=== PATIENT | female | born 1980 | race Caucasian/White ===

== ENCOUNTER 2016-10-22 08:40 | Emergency (ER) | payer BC, MEDICAID ==
[~2016-10-22] VITALS: Ht 167.6 cm; Wt 69.6 kg
[~2016-10-22 08:40] MED LIST: ALBU0.086 NEB; CETI10 PO; GABA300C3 PO; LAMO100 PO; SYMB80AE INH
[2016-10-22 08:47] VITALS: BP 116/88; PULSE 92; RESP 18; TEMP 98.1; O2SAT 99
[2016-10-22] MEDS ORDERED: VENTAER INH (08:58)
[2016-10-22] MEDS ORDERED: GABA300C5 PO (08:58)
[2016-10-22] MEDS ORDERED: LAMI200T PO (08:58)
[2016-10-22] MEDS ORDERED: VORT1TAB PO (08:58)
[2016-10-22] MEDS ORDERED: INHALER (08:58)
[2016-10-22] MEDS ORDERED: LURA20TA PO (08:58)
--- NOTE | 2016-10-22 09:00 | PD ---
HPI Chief Complaint: Musculoskeletal Complaint Time Seen by Provider: 08:58 Travel History International Travel<30 days: No Contact w/Intl Traveler<30days: No Traveled to known affect area: No History of Present Illness HPI This 36-year-old female is complaining of pain in the right hand. She fell and hit her hand on Sunday. She didn't have pain since then. No other injuries PFSH Past Medical History Asthma: Yes Anxiety: Yes Depression: Yes Cancer: No Cardiovascular Problems: No Chemotherapy: No Diabetes: No Diminished Hearing: No Endocrine: No Glaucoma: No Genitourinary: No Headaches: Yes Hepatitis: No Hiatal Hernia: No Hypertension: No Immune Disorder: No Implanted Vascular Access Dvce: Yes Musculoskeletal: Yes (neck is fused ruptured disc in the back) Neurologic: Yes (seizure disorder frequent headaches) Psychiatric: Yes (anxiety and depression) Reproductive: Yes Respiratory: Yes (asthma) Radiation Therapy: No Seizures: Yes Thyroid Disease: No ?: Not : 3 Para: 2 Past Surgical History AICD: No Body Medical Devices: breast implants hardware both feet hardware in the neck Section: Yes Gynecologic Surgery: Yes (c -sectiioin left oophorectomy hysterectomy) Hysterectomy: Yes Joint Replacement: No Pacemaker: No Thoracic Surgery: Yes (benign left breast lumpectomy char breast implants) Other Surgery: Yes (lumpectomy melenoma) Social History Alcohol Use: Yes (rare) Tobacco Use: Yes (E-CIG) Substance Use: No Allergies-Medications (Allergen,Severity, Reaction): Coded Allergies: No Known Allergies (Verified , 10/22/16) Reported Meds & Prescriptions Reported Meds & Active Scripts Active Reported [Inhaler] Unknown Dose Ventolin Hfa 18 GM Inh (Albuterol Sulfate) 90 Mcg/Act Aer 1 Puff INH Q4H PRN Gabapentin 300 Mg Cap Unknown Dose PO BID Latuda (Lurasidone) 20 Mg Tab Unknown Dose PO DAILY Trintellix (Vortioxetine) 5 Mg Tab Unknown Dose PO DAILY Lamictal (Lamotrigine) 200 Mg Tab 250 Mg PO BID Review of Systems General / Constitutional: No: Fever, Chills Eyes: No: Diploplia HENT: No: Headaches Cardiovascular: No: Chest Pain or Discomfort, Palpitations Respiratory: No: Cough, Shortness of Breath Gastrointestinal: No: Diarrhea Musculoskeletal: Positive: Pain Skin: No Rash, No Itching Physical Exam Narrative GENERAL: Well-developed female SKIN: Warm and dry. HEAD: Atraumatic. Normocephalic. EYES: Pupils equal and round. No scleral icterus. No injection or drainage. ENT: No nasal bleeding or discharge. Mucous membranes pink and moist. NECK: Trachea midline. No JVD. MUSCULOSKELETAL: No obvious deformities. No clubbing. No cyanosis. No edema. There is ecchymosis on the ulnar side of the right hand. There is tenderness over the fifth metacarpal. There is pain with movement of the fifth finger. NEUROLOGICAL: Awake and alert. No obvious cranial nerve deficits. Motor grossly within normal limits. Normal speech. PSYCHIATRIC: Appropriate mood and affect; insight and judgment normal. Data Data Last Documented VS Vital Signs Date Time Temp Pulse Resp B/P Pulse Ox O2 Delivery O2 Flow Rate FiO2 10/22/16 08:47 98.1 92 18 116/88 99 Room Air Orders Hand, Complete ([id number]) (10/22/16 08:58) Splint Or Brace Apply/Monitor (10/22/16 09:30) [facility] Medical Decision Making Medical Screen Exam Complete: Yes Emergency Medical Condition: Yes Medical Record Reviewed: Yes Differential Diagnosis Differential includes contusion, fracture Narrative Course X-ray shows irregularity at the base of the proximal phalanx of the fifth finger consistent with a nondisplaced fracture. On reevaluating the patient she is exquisitely tender at this place. I will place her in a ulnar gutter splint. Diagnosis Primary Impression: Fracture of proximal phalanx of finger Qualified Code: S62.646A - Closed nondisplaced fracture of proximal phalanx of right little finger, initial encounter Additional Instructions: elevate, follow up 1-2 weeks Disposition: 01 DISCHARGE HOME Condition: Stable Gerald Lynn MD Oct 22, 2016 09:00
--- NOTE | 2016-10-22 09:19 | RADHPO ---
EXAM DATE/TIME: 10/22/2016 09:03 CORRECTION Corrected on: October 22, 2016; [facility] COMPARISON: No previous studies available for comparison. INDICATIONS : Fell on right hand, has pain MEDICAL HISTORY : None. SURGICAL HISTORY : None. ENCOUNTER: Initial ACUITY: 3 days PAIN SCORE: 10/10 LOCATION: Right hand FINDINGS: There is a minimally displaced fracture at the base of the little finger proximal phalanx. The fractu re is transverse to oblique in configuration. I don't see clear extension to the articular surface. T here is no subluxation. CONCLUSION: Acute minimally displaced fracture of the base of the little finger proximal phalanx. Philip Espinosa MD on October 22, 2016 at 9:17 Board Certified Radiologist. This report was verified electronically. Philip Espinosa MD on October 22, 2016 at 9:36 Board Certified Radiologist. This report was verified electronically.
== END 2016-10-22 09:57 | disposition home or self-care (01) ==
LOC: PHED 08:40
DX: S62.646A Nondisplaced fracture of proximal phalanx of right little finger, initial encounter for closed fracture (principal); W19.XXXA Unspecified fall, initial encounter
CPT/HCPCS: 29125; 73130

== ENCOUNTER 2016-12-21 10:04 | Emergency (ER) | payer BC, MEDICAID ==
[~2016-12-21 10:04] MED LIST changes: -ALBU0.086 NEB; -CETI10 PO; -GABA300C3 PO; +GABA300C5 PO; +INHALER; +LAMI200T PO; -LAMO100 PO; +LURA20TA PO; -SYMB80AE INH; +VENTAER INH; +VORT1TAB PO
[2016-12-21 10:05] VITALS: BP 120/80; PULSE 92; RESP 20; TEMP 97.5; O2SAT 100
[2016-12-21] MEDS ORDERED: SODIUM CHLOR 0.9% 1000 ML INJ 1,000 ML IV SCH (10:26)
[2016-12-21] MEDS ORDERED: MORPHINE SULFATE 4 MG/ML INJ IV PUSH ONE (10:30)
[2016-12-21] MEDS ORDERED: SODIUM CHLORIDE 0.9% FLUSH 10 ML FLUSH IV FLUSH PRN (10:30)
[2016-12-21] MEDS ORDERED: ONDANSETRON HCL 4 MG/2 ML VIAL IVP ONE (10:30)
--- NOTE | 2016-12-21 10:31 | PD ---
HPI Chief Complaint: Complaint Time Seen by Provider: 10:22 Travel History International Travel<30 days: No Contact w/Intl Traveler<30days: No Traveled to known affect area: No History of Present Illness HPI 36-year-old female sent in by an urgent care facility for evaluation of possible kidney stone. The patient began having left flank pain yesterday which she describes as cramping/sharp/labor like pains. Pain radiates around to her abdomen, is constant, sometimes worse with movements. She denies fevers or chills. No nausea or vomiting. No hematuria or dysuria. She presents with paperwork from the urgent care facility that shows that her UA shows 3+ blood. PFSH Past Medical History Asthma: Yes Anxiety: Yes Depression: Yes Cancer: No Cardiovascular Problems: No Chemotherapy: No Diabetes: No Diminished Hearing: No Endocrine: No Glaucoma: No Genitourinary: No Headaches: Yes Hepatitis: No Hiatal Hernia: No Hypertension: No Immune Disorder: No Implanted Vascular Access Dvce: Yes Musculoskeletal: Yes (neck is fused ruptured disc in the back) Neurologic: Yes (seizure disorder frequent headaches) Psychiatric: Yes (anxiety and depression) Reproductive: Yes Respiratory: Yes (asthma) Radiation Therapy: No Seizures: Yes Thyroid Disease: No Tetanus Vaccination: < 5 Years ?: Not : 3 Para: 2 Past Surgical History AICD: No Body Medical Devices: breast implants hardware both feet hardware in the neck Section: Yes Gynecologic Surgery: Yes (c -sectiioin left oophorectomy hysterectomy) Hysterectomy: Yes Joint Replacement: No Pacemaker: No Thoracic Surgery: Yes (benign left breast lumpectomy char breast implants) Other Surgery: Yes (lumpectomy melenoma) Social History Alcohol Use: Yes (rare) Tobacco Use: Yes (E-CIG) Substance Use: No Allergies-Medications (Allergen,Severity, Reaction): Coded Allergies: No Known Allergies (Verified , 12/21/16) Reported Meds & Prescriptions Reported Meds & Active Scripts Active Reported [Inhaler] Unknown Dose Ventolin Hfa 18 GM Inh (Albuterol Sulfate) 90 Mcg/Act Aer 1 Puff INH Q4H PRN Gabapentin 300 Mg Cap Unknown Dose PO BID Latuda (Lurasidone) 20 Mg Tab Unknown Dose PO DAILY Trintellix (Vortioxetine) 5 Mg Tab Unknown Dose PO DAILY Lamictal (Lamotrigine) 200 Mg Tab 250 Mg PO BID Review of Systems Except as stated in HPI: all other systems reviewed are Neg Physical Exam Narrative GENERAL: Well-developed, well-nourished, no acute distress. SKIN: Focused skin assessment warm/dry. No rash. HEAD: Atraumatic. Normocephalic. EYES: Pupils equal and round. No scleral icterus. No injection or drainage. ENT: Mucous membranes pink and moist. CARDIOVASCULAR: Regular rate and rhythm. RESPIRATORY: No accessory muscle use. Clear to auscultation. Breath sounds equal bilaterally. GASTROINTESTINAL: Abdomen soft, nondistended. Mild left lower quadrant tenderness without peritoneal signs. MUSCULOSKELETAL: No obvious deformities. No clubbing. No cyanosis. No edema. NEUROLOGICAL: Awake and alert. No obvious cranial nerve deficits. Motor grossly within normal limits. Normal speech. PSYCHIATRIC: Appropriate mood and affect; insight and judgment normal. Data Data Last Documented VS Vital Signs Date Time Temp Pulse Resp B/P Pulse Ox O2 Delivery O2 Flow Rate FiO2 12/21/16 10:36 99 12/21/16 10:05 97.5 92 20 120/80 Room Air Orders Complete Blood Count With Diff (12/21/16 10:26) Comprehensive Metabolic Panel (12/21/16 10:26) Lipase (12/21/16 10:26) Prothrombin Time / Inr (Pt) (12/21/16 10:26) Act Partial Throm Time (Ptt) (12/21/16 10:26) Urinalysis - C+S If Indicated (12/21/16 10:26) Ct Abd/Pel W/O Iv Contrast (12/21/16 10:26) Iv Access Insert/Monitor (12/21/16 10:26) Ecg Monitoring (12/21/16 10:26) Oximetry (12/21/16 10:26) Morphine Inj (Morphine Inj) (12/21/16 10:30) Ondansetron Inj (Zofran Inj) (12/21/16 10:30) Sodium Chlor 0.9% 1000 Ml Inj (Ns 1000 M (12/21/16 10:26) Sodium Chloride 0.9% Flush (Ns Flush) (12/21/16 10:30) Ed Urine Pregnancytest Poc (12/21/16 10:26) Urine Culture (12/21/16 10:30) Ketorolac Inj (Toradol Inj) (12/21/16 11:45) Ceftriaxone Inj (Rocephin Inj) (12/21/16 11:45) Labs Laboratory Tests Test 12/21/16 10:30 White Blood Count 13.3 TH/MM3 Red Blood Count 4.16 MIL/MM3 Hemoglobin 12.7 GM/DL Hematocrit 37.7 % Mean Corpuscular Volume 90.6 FL Mean Corpuscular Hemoglobin 30.5 PG Mean Corpuscular Hemoglobin 33.7 % Concent Red Cell Distribution Width 12.1 % Platelet Count 250 TH/MM3 Mean Platelet Volume 7.8 FL Neutrophils (%) (Auto) 79.7 % Lymphocytes (%) (Auto) 15.1 % Monocytes (%) (Auto) 3.9 % Eosinophils (%) (Auto) 1.1 % Basophils (%) (Auto) 0.2 % Neutrophils # (Auto) 10.6 TH/MM3 Lymphocytes # (Auto) 2.0 TH/MM3 Monocytes # (Auto) 0.5 TH/MM3 Eosinophils # (Auto) 0.1 TH/MM3 Basophils # (Auto) 0.0 TH/MM3 CBC Comment DIFF FINAL Differential Comment Prothrombin Time 11.0 SEC Prothromb Time International 1.0 RATIO Ratio Activated Partial 29.6 SEC Thromboplast Time Urine Color COLORLESS Urine Turbidity CLEAR Urine pH 6.5 Urine Specific [place] 1.002 Urine Protein TRACE mg/dL Urine Glucose (UA) NEG mg/dL Urine Ketones NEG mg/dL Urine Occult Blood MOD Urine Nitrite NEG Urine Bilirubin NEG Urine Urobilinogen LESS THAN 2.0 MG/DL Urine Leukocyte Esterase LARGE Urine RBC 1 /hpf Urine WBC 17 /hpf Urine Squamous Epithelial 1 /hpf Cells Urine Bacteria OCC /hpf Urine Mucus FEW /lpf Microscopic Urinalysis Comment CULTURE INDICATED Sodium Level 138 MEQ/L Potassium Level 3.8 MEQ/L Chloride Level 105 MEQ/L Carbon Dioxide Level 26.2 MEQ/L Anion Gap 7 MEQ/L Blood Urea Nitrogen 11 MG/DL Creatinine 0.93 MG/DL Estimat Glomerular Filtration 68 ML/MIN Rate Random Glucose 81 MG/DL Calcium Level 9.1 MG/DL Total Bilirubin 0.5 MG/DL Aspartate Amino Transf 18 U/L (AST/SGOT) Alanine Aminotransferase 30 U/L (ALT/SGPT) Alkaline Phosphatase 56 U/L Total Protein 7.8 GM/DL Albumin 4.1 GM/DL Lipase 78 U/L [facility] Medical Decision Making Medical Screen Exam Complete: Yes Emergency Medical Condition: Yes Differential Diagnosis Nephrolithiasis, ureterolithiasis, pyelonephritis, colitis, diverticulitis, gastritis, shingles, musculoskeletal pain Narrative Course Vital signs show heart rate 92, blood pressure 120/80, pulse ox 100% on room air , oral temp of 97.5F. CBC shows WBC 13.3, hemoglobin 12.7, hematocrit 37.7, platelets 250, neutrophils 79.7%. CMP is unremarkable. Lipase is 78. UA shows moderate occult blood, large leukocyte esterase, 17 WBCs, occasional bacteria, few mucus, negative nitrites, culture indicated. CT abdomen pelvis: CONCLUSION: 1. The kidneys are unremarkable in appearance with no renal calculi or extraction. 2. The bowel gas pattern is unremarkable in appearance on this noncontrast study performed without oral contrast. Patient was given morphine, Toradol, and Rocephin. On reassessment she is resting comfortably. She is stable for discharge home with outpatient follow- up with her primary care physician this week. She will be discharged home with a prescription for Macrobid for pyelonephritis. I informed her to look for possible rash/shingles and to return to the emergency department immediately should she notices. She was informed on when to return to the emergency department. She verbalizes understanding and agreement with plan. Diagnosis Primary Impression: Pyelonephritis Additional Impression: Left flank pain Referrals: Primary Care Physician 3 days Additional Instructions: Follow-up with your primary care physician this week. Return to the emergency department for worsening symptoms or any other concerns. Scripts Tramadol 50 Mg Tab50 Mg PO Q6H PRN (PAIN) #10 TAB Ref 0 Prov:Denis Brown MD 12/21/16 Nitrofurantoin Monohydrate Macrocrystals (Macrobid)100 Mg Mcz161 Mg PO BID 7 Days Ref 0 Prov:Denis Brown MD 12/21/16 Disposition: 01 DISCHARGE HOME Condition: Stable Denis Brown MD Dec 21, 2016 10:31
[2016-12-21 10:36] VITALS: O2SAT 99
[2016-12-21 10:51] LABS: AUTOMATED NEUTROPHIL # 10.6 TH/MM3 (1.8-7.7); BASOPHIL % 0.2 % (0.0-2.0); EOSINOPHIL # 0.1 TH/MM3 (0-0.4); EOSINOPHIL % 1.1 % (0.0-4.0); HEMATOCRIT 37.7 % (35.0-46.0); HEMO FLAGS DIFF FINAL; LYMPH % 15.1 % (9.0-44.0); MEAN CELL VOLUME 90.6 FL (80.0-100.0); MEAN CORPUSCULAR HEMOGLOBIN 30.5 PG (27.0-34.0); MEAN CORPUSCULAR HGB CONC 33.7 % (32.0-36.0); MONO % 3.9 % (0.0-8.0); NEUT % 79.7 % (16.0-70.0); PLATELET COUNT 250 TH/MM3 (150-450); RED BLOOD COUNT 4.16 MIL/MM3 (4.00-5.30); RED CELL DISTRIBUTION WIDTH 12.1 % (11.6-17.2); WHITE BLOOD COUNT 13.3 TH/MM3 (4.0-11.0)
[2016-12-21 10:57] LABS: BACTERIA, URINE OCC /hpf; BLOOD, URINE MOD (NEG); COMMENT (UR) CULTURE INDICATED; CULTURE IF INDICATED CULTURE INDICATED; GLUCOSE,URINE NEG (NEG); KETONE, URINE NEG (NEG); MUCUS URINE FEW /lpf (OCC); NITRITE,URINE NEG (NEG); PH, URINE 6.5 (5.0-8.5); SQUAMOUS EPITHELIAL CELL URINE 1 /hpf (0-5); URINE COLOR COLORLESS (YELLW/STRAW)
[2016-12-21 11:01] LABS: APTT (PATIENT) 29.6 SEC (24.3-30.1)
[2016-12-21 11:14] LABS: ALT (GPT) 30 U/L (10-53); ANION GAP 7 MEQ/L (5-15); AST (GOT) 18 U/L (15-37); BICARBONATE 26.2 MEQ/L (21.0-32.0); BLOOD UREA NITROGEN 11 MG/DL (7-18); CHLORIDE 105 MEQ/L (98-107); GLOMERULAR FILTRATION RATE 68 ML/MIN (>89); POTASSIUM 3.8 MEQ/L (3.5-5.1); SODIUM (NA) 138 MEQ/L (136-145)
[2016-12-21 11:16] LABS: ALKALINE PHOSPHATASE 56 U/L (45-117); TOTAL BILIRUBIN ADULT 0.5 MG/DL (0.2-1.0)
--- NOTE | 2016-12-21 11:33 | RADRPT ---
EXAM DATE/TIME: 12/21/2016 11:04 [facility] COMPARISON: No previous studies available for comparison. INDICATIONS : Left flank pain since yesterday ORAL CONTRAST: No oral contrast ingested. RADIATION DOSE: 5.76 CTDIvol (mGy) MEDICAL HISTORY : Renal calculi. SURGICAL HISTORY : Hysterectomy. ENCOUNTER: Initial ACUITY: 1 day PAIN SCALE: 7/10 LOCATION: Left flank TECHNIQUE: Volumetric scanning of the abdomen and pelvis was performed. Using automated exposure control and ad justment of the mA and/or kV according to patient size, radiation dose was kept as low as reasonably achievable to obtain optimal diagnostic quality images. FINDINGS: LOWER LUNGS: The visualized lower lungs are clear. LIVER: Homogeneous density without lesion. There is no dilation of the biliary tree. No calcified gallston es. SPLEEN: Normal size without lesion. PANCREAS: Within normal limits. KIDNEYS: Normal in size and shape. There is no mass, stone, or hydronephrosis. ADRENAL GLANDS: Within normal limits. VASCULAR: There is no aortic aneurysm. BOWEL/MESENTERY: The stomach, small bowel, and colon demonstrate no acute abnormality. There is no free intraperitone al air or fluid. ABDOMINAL WALL: Within normal limits. RETROPERITONEUM: There is no lymphadenopathy. BLADDER: No wall thickening or mass. REPRODUCTIVE: Within normal limits. INGUINAL: There is no lymphadenopathy or hernia. MUSCULOSKELETAL: Within normal limits for patient age. CONCLUSION: 1. The kidneys are unremarkable in appearance with no renal calculi or extraction. 2. The bowel gas pattern is unremarkable in appearance on this noncontrast study performed without or al contrast. Uli Verma MD on December 21, 2016 at 11:27 Board Certified Radiologist. This report was verified electronically.
[2016-12-21] MEDS ORDERED: KETOROLAC TROMETHAMINE 30 MG/ML (IVP) VIAL IV PUSH ONE (11:45)
[2016-12-21] MEDS ORDERED: cefTRIAXone INJ 1,000 MG in SODIUM CHLORIDE 0.9% INJ 100 ML IV ONE (11:45)
[2016-12-21] MEDS ORDERED: MACR100C2 PO (12:25)
[2016-12-21] MEDS ORDERED: TRAM50TA PO (12:25)
[2016-12-21 12:35] VITALS: BP 118/82; PULSE 88; RESP 20; O2SAT 97
== END 2016-12-21 12:48 | disposition home or self-care (01) ==
LOC: NEPD 10:04
DX: N12 Tubulo-interstitial nephritis, not specified as acute or chronic (principal); J45.909 Unspecified asthma, uncomplicated; F41.8 Other specified anxiety disorders; M50.20 Other cervical disc displacement, unspecified cervical region; R56.9 Unspecified convulsions; B96.20 Unspecified Escherichia coli [E. coli] as the cause of diseases classified elsewhere
CPT/HCPCS: 74176; 80053; 81001; 83690; 84703; 85025; 85610; 85730; 87077; 87086; 87186; 96365; 96375; 99284; J0696; J1885; J2270; J2405; J7030

== ENCOUNTER 2017-03-15 09:37 | Emergency (ER) | payer BC, MEDICAID ==
[~2017-03-15 09:37] MED LIST changes: +MACR100C2 PO; +TRAM50TA PO
[2017-03-15 09:39] VITALS: BP 128/95; PULSE 90; RESP 24; TEMP 97.9; O2SAT 100
--- NOTE | 2017-03-15 10:41 | PD ---
HPI Chief Complaint: seizure Time Seen by Provider: 10:05 Travel History International Travel<30 days: No Contact w/Intl Traveler<30days: No Traveled to known affect area: No History of Present Illness HPI 36yo F with PMH of seizure disorder presents to the ED with c/o seizure today. Pt follows with neurologist Dr. Ramos Victor and she called his office and was told to come to the ED. Pt had a witnessed seizure at work today and states that she did not fall or hit her head because someone was holding her. Pt states she takes lamictal and last week had another seizure medication added because she was having more frequent seizures. Denies any fever, chest pain, sob, n/v, abdominal pain, focal weakness or numbness. PFSH Past Medical History Asthma: Yes Anxiety: Yes Depression: Yes Cancer: No Cardiovascular Problems: No High Cholesterol: Yes Chemotherapy: No Diabetes: No Diminished Hearing: No Endocrine: No Glaucoma: No Genitourinary: No Headaches: Yes Hepatitis: No Hiatal Hernia: No Hypertension: No Immune Disorder: No Implanted Vascular Access Dvce: Yes Musculoskeletal: Yes (neck is fused ruptured disc in the back) Neurologic: Yes (seizure disorder frequent headaches) Psychiatric: Yes (anxiety and depression) Reproductive: Yes Respiratory: Yes (ASTHMA) Radiation Therapy: No Seizures: Yes Thyroid Disease: No Tetanus Vaccination: < 5 Years Influenza Vaccination: No ?: Not : 3 Para: 2 Past Surgical History AICD: No Body Medical Devices: breast implants hardware both feet hardware in the neck Section: Yes Gynecologic Surgery: Yes (c -sectiioin left oophorectomy hysterectomy) Hysterectomy: Yes Joint Replacement: No Pacemaker: No Thoracic Surgery: Yes (benign left breast lumpectomy char breast implants) Other Surgery: Yes (lumpectomy melenoma) Social History Alcohol Use: No Tobacco Use: Yes Substance Use: No Allergies-Medications (Allergen,Severity, Reaction): Coded Allergies: No Known Allergies (Verified , 03/15/17) Reported Meds & Prescriptions Reported Meds & Active Scripts Active Tylenol (Acetaminophen) 325 Mg Tab 650 Mg PO Q6H PRN Tramadol (Tramadol HCl) 50 Mg Tab 50 Mg PO Q6H PRN Macrobid (Nitrofurantoin Monoh/Nitrofur Macro) 100 Mg Cap 100 Mg PO BID 7 Days Reported [Inhaler] Unknown Dose Ventolin Hfa 18 GM Inh (Albuterol Sulfate) 90 Mcg/Act Aer 1 Puff INH Q4H PRN Gabapentin 300 Mg Cap Unknown Dose PO BID Latuda (Lurasidone) 20 Mg Tab Unknown Dose PO DAILY Trintellix (Vortioxetine) 5 Mg Tab Unknown Dose PO DAILY Lamictal (Lamotrigine) 200 Mg Tab 250 Mg PO BID Review of Systems Except as stated in HPI: all other systems reviewed are Neg Physical Exam Narrative GENERAL: 36yo F not in distress. SKIN: Focused skin assessment warm/dry. HEAD: Atraumatic. Normocephalic. EYES: Pupils equal and round. No scleral icterus. No injection or drainage. ENT: No nasal bleeding or discharge. Mucous membranes pink and moist. NECK: No midline cervical spine ttp. +Paraspinal ttp and worst with head movement. CARDIOVASCULAR: Regular rate and rhythm. No murmur appreciated. RESPIRATORY: No accessory muscle use. Clear to auscultation. Breath sounds equal bilaterally. GASTROINTESTINAL: Abdomen soft, non-tender, nondistended. MUSCULOSKELETAL: No obvious deformities. No clubbing. No cyanosis. No edema. NEUROLOGICAL: Awake and alert. No obvious cranial nerve deficits. Motor grossly within normal limits. Normal speech. PSYCHIATRIC: Appropriate mood and affect; insight and judgment normal. Data Data Last Documented VS Vital Signs Date Time Temp Pulse Resp B/P Pulse Ox O2 Delivery O2 Flow Rate FiO2 03/15/17 12:30 122/94 99 03/15/17 09:39 97.9 90 24 Room Air Orders Complete Blood Count With Diff (03/15/17 10:23) Basic Metabolic Panel (Bmp) (03/15/17 10:23) Magnesium (Mg) (03/15/17 10:24) Lamictal (Lamotrigine) (03/15/17 10:24) Drug Screen, Random Urine (03/15/17 10:44) Urinalysis - C+S If Indicated (03/15/17 10:44) Diazepam (Valium) (03/15/17 12:15) Ibuprofen (Motrin) (03/15/17 12:15) Labs Laboratory Tests Test 03/15/17 10:30 White Blood Count 6.3 TH/MM3 Red Blood Count 4.03 MIL/MM3 Hemoglobin 13.1 GM/DL Hematocrit 36.6 % Mean Corpuscular Volume 91.0 FL Mean Corpuscular Hemoglobin 32.5 PG Mean Corpuscular Hemoglobin 35.8 % Concent Red Cell Distribution Width 12.6 % Platelet Count 253 TH/MM3 Mean Platelet Volume 8.0 FL Neutrophils (%) (Auto) 63.0 % Lymphocytes (%) (Auto) 28.8 % Monocytes (%) (Auto) 5.7 % Eosinophils (%) (Auto) 1.9 % Basophils (%) (Auto) 0.6 % Neutrophils # (Auto) 4.0 TH/MM3 Lymphocytes # (Auto) 1.8 TH/MM3 Monocytes # (Auto) 0.4 TH/MM3 Eosinophils # (Auto) 0.1 TH/MM3 Basophils # (Auto) 0.0 TH/MM3 CBC Comment DIFF FINAL Differential Comment Urine Color LIGHT-YELLOW Urine Turbidity CLEAR Urine pH 7.5 Urine Specific [place] 1.004 Urine Protein NEG mg/dL Urine Glucose (UA) NEG mg/dL Urine Ketones NEG mg/dL Urine Occult Blood NEG Urine Nitrite NEG Urine Bilirubin NEG Urine Urobilinogen LESS THAN 2.0 MG/DL Urine Leukocyte Esterase NEG Urine WBC 1 /hpf Microscopic Urinalysis Comment CULT NOT INDICATED Sodium Level 141 MEQ/L Potassium Level 4.0 MEQ/L Chloride Level 108 MEQ/L Carbon Dioxide Level 23.2 MEQ/L Anion Gap 10 MEQ/L Blood Urea Nitrogen 7 MG/DL Creatinine 0.78 MG/DL Estimat Glomerular Filtration 84 ML/MIN Rate Random Glucose 91 MG/DL Calcium Level 8.7 MG/DL Magnesium Level 2.2 MG/DL Urine Opiates Screen NEG Urine Barbiturates Screen NEG Urine Amphetamines Screen NEG Urine Benzodiazepines Screen POS Urine Cocaine Screen NEG Urine Cannabinoids Screen NEG [facility] Medical Decision Making Medical Screen Exam Complete: Yes Emergency Medical Condition: Yes Differential Diagnosis Seizure secondary to noncompliance vs. infection vs. drug use vs. musculoskeletal pain Narrative Course 36yo F with seizure disorder here after a witnessed seizure at work today. Pt did not fall and did not hit her head. No signs of trauma on her. She is AAOx3 and back to baseline mental status. I spoke with pt's neurologist Dr. Victor and he said that last time he saw her was 03/01/17 and he added vimpat 50mg BID on top of her lamictal 250mg BID. States that the only thing he would add is a urine drug screen. States if lab works are normal, she can follow up with him early next week in his office. Labs reviewed, no leukocytosis. BMP unremarkable. Magnesium 2.2. Utox showed positive benzodiazepine. Pt admits to taking xanax for anxiety. Lamictal level is pending. Pt also with neck pain that seems very musculoskeletal. Pt given valium and ibuprofen. Pain improved after medications. Return precautions given. Pt has been observed in the ED without any seizure activities. Diagnosis Primary Impression: Seizure Patient Instructions: General Instructions Departure Forms: Tests/Procedures, Work Release Enter return to work date: Mar 20, 2017 Additional Instructions: Please follow up with your neurologist early next week. Return to the ED if symptoms worsen. Med/Other Pt SpecificInfo: Prescription(s) given Scripts Acetaminophen (Tylenol)325 Mg Sus133 Mg PO Q6H PRN (PAIN SCALE 1 TO 4) #20 TAB Ref 0 Prov:Ruth Dickson DO 03/15/17 Disposition: 01 DISCHARGE HOME Condition: Stable Ruth Dickson DO Mar 15, 2017 10:41
[2017-03-15 10:51] LABS: BASOPHIL % 0.6 % (0.0-2.0); EOSINOPHIL # 0.1 TH/MM3 (0-0.4); EOSINOPHIL % 1.9 % (0.0-4.0); HEMATOCRIT 36.6 % (35.0-46.0); HEMO FLAGS DIFF FINAL; LYMPH % 28.8 % (9.0-44.0); LYMPHOCYTE # 1.8 TH/MM3 (1.0-4.8); MEAN CORPUSCULAR HEMOGLOBIN 32.5 PG (27.0-34.0); MEAN CORPUSCULAR HGB CONC 35.8 % (32.0-36.0); MONO % 5.7 % (0.0-8.0); PLATELET COUNT 253 TH/MM3 (150-450); RED BLOOD COUNT 4.03 MIL/MM3 (4.00-5.30); RED CELL DISTRIBUTION WIDTH 12.6 % (11.6-17.2); WHITE BLOOD COUNT 6.3 TH/MM3 (4.0-11.0)
[2017-03-15 11:08] LABS: BLOOD, URINE NEG (NEG); GLUCOSE,URINE NEG (NEG); KETONE, URINE NEG (NEG); NITRITE,URINE NEG (NEG); PH, URINE 7.5 (5.0-8.5); URINE COLOR LIGHT-YELLOW (YELLW/STRAW)
[2017-03-15 11:10] LABS: BICARBONATE 23.2 MEQ/L (21.0-32.0); COMMENT (UR) CULT NOT INDICATED; CULTURE IF INDICATED CULT NOT INDICATED
[2017-03-15 11:19] LABS: AMPHETAMINE, URINE NEG (NEG); BARBITURATES, URINE NEG (NEG); COCAINE, URINE NEG (NEG)
[2017-03-15] MEDS ORDERED: IBUPROFEN 600 MG TAB PO ONE (12:15)
[2017-03-15] MEDS ORDERED: DIAZEPAM 5 MG TAB PO ONE (12:15)
[2017-03-15] MEDS ORDERED: TYLE325T PO (12:18)
[2017-03-15 12:30] VITALS: BP 122/94
== END 2017-03-15 12:41 | disposition home or self-care (01) ==
LOC: NEPC 09:37
DX: R56.9 Unspecified convulsions (principal); M54.2 Cervicalgia; E78.00 Pure hypercholesterolemia, unspecified; Z72.0 Tobacco use; Z86.69 Personal history of other diseases of the nervous system and sense organs; Z87.09 Personal history of other diseases of the respiratory system; Z86.59 Personal history of other mental and behavioral disorders; Z87.39 Personal history of other diseases of the musculoskeletal system and connective tissue
CPT/HCPCS: 80048; 80175; 80307; 81001; 83735; 85025; 99283

== ENCOUNTER 2017-05-16 12:41 | Emergency (ER) | payer BC, MEDICAID ==
[~2017-05-16] VITALS: Ht 167.6 cm; Wt 67.0 kg
[~2017-05-16 12:41] MED LIST changes: +TYLE325T PO
[2017-05-16 12:51] VITALS: BP 90/67; PULSE 95; RESP 18; TEMP 98.3; O2SAT 99
[2017-05-16] MEDS ORDERED: IBUP200C PO (13:12)
[2017-05-16] MEDS ORDERED: METHY10 PO (13:12)
[2017-05-16] MEDS ORDERED: VIMP150T PO (13:12)
[2017-05-16] MEDS ORDERED: ZOLP10TA3 PO (13:12)
[2017-05-16] MEDS ORDERED: ALPR1TAB3 PO (13:12)
[2017-05-16] MEDS ORDERED: TOPI1TAB36 PO (13:12)
--- NOTE | 2017-05-16 13:14 | PD ---
HPI Chief Complaint: Head Injury Time Seen by Provider: 12:57 Travel History International Travel<30 days: No Contact w/Intl Traveler<30days: No Traveled to known affect area: No History of Present Illness HPI This is a 36 year old female with a history of seizure disorder, presents today after slipping on her bath mat and striking the back of her head. She is unsure whether she lost consciousness or not. The patient reports throwing up several times after the episode. She denies any neck pain. She reports pain all over her head. She denies any incontinence. She denies any numbness and tingling of her extremities. There are no other complaints at the time of my examination. PFSH Past Medical History Asthma: Yes Anxiety: Yes Depression: Yes Cancer: No Cardiovascular Problems: No High Cholesterol: Yes Chemotherapy: No Diabetes: No Diminished Hearing: No Endocrine: No Glaucoma: No Genitourinary: No Headaches: Yes Hepatitis: No Hiatal Hernia: No Hypertension: No Immune Disorder: No Implanted Vascular Access Dvce: Yes Musculoskeletal: Yes (neck is fused ruptured disc in the back) Neurologic: Yes (seizure disorder frequent headaches) Psychiatric: Yes (anxiety and depression) Reproductive: Yes Respiratory: Yes (ASTHMA) Immunizations Current: Yes Radiation Therapy: No Seizures: Yes Thyroid Disease: No Tetanus Vaccination: < 5 Years Influenza Vaccination: No ?: Not : 3 Para: 2 Past Surgical History AICD: No Body Medical Devices: breast implants hardware both feet hardware in the neck Section: Yes Gynecologic Surgery: Yes (c -sectiioin left oophorectomy hysterectomy) Hysterectomy: Yes Joint Replacement: No Pacemaker: No Thoracic Surgery: Yes (benign left breast lumpectomy char breast implants) Other Surgery: Yes (lumpectomy melenoma) Social History Alcohol Use: No Tobacco Use: Yes (e cigs) Substance Use: No Allergies-Medications (Allergen,Severity, Reaction): Coded Allergies: No Known Allergies (Verified , 05/16/17) Reported Meds & Prescriptions Reported Meds & Active Scripts Active Zofran Odt (Ondansetron Odt) 4 Mg Tab 4 Mg SL Q6HR PRN Tylenol-Codeine #3 (Acetaminophen-Codeine) 300-30 mg Tab 1 Tab PO Q6HR PRN Tylenol (Acetaminophen) 325 Mg Tab 650 Mg PO Q6H PRN Reported Ritalin IR (Methylphenidate HCl) 10 Mg Tab 10 Mg PO TIDAC Ibuprofen 200 Mg Cap 200 Mg PO DIRECTED Topiramate 50 Mg Tab 50 Mg PO BID Zolpidem (Zolpidem Tartrate) 10 Mg Tab 10 Mg PO HS PRN Vimpat (Lacosamide) 150 Mg Tab 150 Mg PO DAILY Alprazolam 1 Mg Tab 1 Mg PO Q6H PRN Ventolin Hfa 18 GM Inh (Albuterol Sulfate) 90 Mcg/Act Aer 1 Puff INH Q4H PRN Latuda (Lurasidone) 20 Mg Tab 40 Mg PO DAILY Trintellix (Vortioxetine) 5 Mg Tab 20 Mg PO DAILY Lamictal (Lamotrigine) 200 Mg Tab 250 Mg PO BID Review of Systems Except as stated in HPI: all other systems reviewed are Neg HENT: Positive: Headaches, No: Neck Stiffness, Neck Pain Cardiovascular: No: Chest Pain or Discomfort, Palpitations, Irregular Rhythm Respiratory: No: Cough, Shortness of Breath Gastrointestinal: Positive: Nausea, Vomiting, No: Abdominal Pain Genitourinary: No: Incontinence Musculoskeletal: No: Weakness, Pain Neurologic: Positive: Headache, Other (history of seizure disorder but denies seizures), No: Weakness, Dizziness, Incontinence, Seizures Physical Exam Narrative GENERAL: Well-developed well-nourished female who appears sleepy and somewhat lethargic. SKIN: Focused skin assessment warm/dry. HEAD: Atraumatic. Normocephalic. EYES: Pupils equal and round. No scleral icterus. No injection or drainage. ENT: No nasal bleeding or discharge. Mucous membranes pink and moist. NECK: Trachea midline. Supple. No posterior spinous process tenderness. CARDIOVASCULAR: Regular rate and rhythm. No murmur appreciated. RESPIRATORY: No accessory muscle use. Clear to auscultation. Breath sounds equal bilaterally. GASTROINTESTINAL: Abdomen soft, non-tender, nondistended. Hepatic and splenic margins not palpable. MUSCULOSKELETAL: No obvious deformities. No clubbing. No cyanosis. No edema. NEUROLOGICAL: Awake and somewhat lethargic.. No obvious cranial nerve deficits. Motor grossly within normal limits. Normal speech. Data Data Last Documented VS Vital Signs Date Time Temp Pulse Resp B/P (MAP) Pulse Ox O2 Delivery O2 Flow Rate FiO2 05/16/17 12:58 99 Room Air 05/16/17 12:51 98.3 95 18 90/67 (75) Orders Orders Ct Brain W/O Iv Contrast(Rout) (05/16/17 13:02) Acetamin-Hydrocod 325-5 Mg ([place] 5-325 (05/16/17 14:15) MDM Medical Decision Making Medical Screen Exam Complete: Yes Emergency Medical Condition: Yes Differential Diagnosis Concussion versus intracranial injury versus seizure Narrative Course 36-year-old female presents after slipping on a mat in the bathroom striking her head on the soap dish in the shower. Patient unsure whether she lost constant. Patient states she feels "funny". The patient has no focal deficits on my examination. CT brain shows no evidence of acute intracranial injury. She has by definition a concussion. She did have associated nausea vomiting. She'll be discharged with a prescription for nausea medicine. She'll also be given a prescription for Tylenol 3. She's been given one here prior to discharge. She'll be told not to drink or drive while taking this medication. Diagnosis Primary Impression: Closed head injury Additional Impression: Concussion Additional Instructions: Head injury sheet. Do not drink or drive all taking pain medication. Follow up with her primary care physician. Do not take your Xanax or Ambien while taking the pain medication. Med/Other Pt SpecificInfo: Prescription(s) given Scripts Ondansetron Odt (Zofran Odt) 4 Mg Tab 4 MG SL Q6HR Y for Nausea/Vomiting, #10 TAB 0 Refills Prov: Aric Womack MD 05/16/17 Acetaminophen-Codeine (Tylenol-Codeine #3) 300-30 mg Tab 1 TAB PO Q6HR Y for PAIN, #10 TAB 0 Refills Prov: Aric Womack MD 05/16/17 Disposition: 01 DISCHARGE HOME Condition: Stable Aric Womack MD May 16, 2017 13:14
--- NOTE | 2017-05-16 13:21 | RADRPT ---
EXAM DATE/TIME: 05/16/2017 13:13 [facility] COMPARISON: CT BRAIN W/O CONTRAST, October 15, 2013, 23:29. INDICATIONS : Trauma. Fell and hit back of head. Cephalgia. Vomiting. RADIATION DOSE: 63.87 CTDIvol (mGy) MEDICAL HISTORY : Seizures. Renal calculi. SURGICAL HISTORY : section. Hysterectomy. ENCOUNTER: Initial ACUITY: 1 day PAIN SCALE: 10/10 LOCATION: cranial TECHNIQUE: Multiple contiguous axial images were obtained of the head. Using automated exposure control and adj ustment of the mA and/or kV according to patient size, radiation dose was kept as low as reasonably a chievable to obtain optimal diagnostic quality images. DICOM format image data is available electro nically for review and comparison. FINDINGS: CEREBRUM: The ventricles are normal for age. No evidence of midline shift, mass lesion, hemorrhage or acute in farction. No extra-axial fluid collections are seen. POSTERIOR FOSSA: The cerebellum and brainstem are intact. The 4th ventricle is midline. The cerebellopontine angle i s unremarkable. EXTRACRANIAL: The visualized portion of the orbits is intact. SKULL: The calvaria is intact. No evidence of skull fracture. CONCLUSION: No acute disease. Abebe Rivers MD FACR on May 16, 2017 at 13:19 Board Certified Radiologist. This report was verified electronically.
[2017-05-16] MEDS ORDERED: TYLETAB34 PO (14:10)
[2017-05-16] MEDS ORDERED: ZOFR4TAB3 SL (14:10)
[2017-05-16] MEDS ORDERED: ACETAMINOPHEN/HYDROcodone 325 MG/5 MG TAB PO ONE (14:15)
[2017-05-16 14:51] VITALS: BP 81/50
== END 2017-05-16 14:54 | disposition home or self-care (01) ==
LOC: PHED 12:41
DX: S06.0X0A Concussion without loss of consciousness, initial encounter (principal); W01.198A Fall on same level from slipping, tripping and stumbling with subsequent striking against other object, initial encounter; Y92.002 Bathroom of unspecified non-institutional (private) residence as the place of occurrence of the external cause
CPT/HCPCS: 70450; 99285

== ENCOUNTER 2017-05-19 12:08 | Emergency (ER) | payer BC, MEDICAID ==
[~2017-05-19 12:08] MED LIST changes: +ALPR1TAB3 PO; -GABA300C5 PO; +IBUP200C PO; -INHALER; -MACR100C2 PO; +METHY10 PO; +TOPI1TAB36 PO; -TRAM50TA PO; +TYLETAB34 PO; +VIMP150T PO; +ZOFR4TAB3 SL; +ZOLP10TA3 PO
[2017-05-19 12:16] VITALS: BP 108/67; PULSE 75; RESP 18; TEMP 97.2; O2SAT 100
[2017-05-19] MEDS ORDERED: SODIUM CHLOR 0.9% 1000 ML INJ 1,000 ML IV SCH ×2 (12:24→15:25)
--- NOTE | 2017-05-19 12:29 | PD ---
HPI Chief Complaint: Seizure Time Seen by Provider: 12:24 Travel History International Travel<30 days: No Contact w/Intl Traveler<30days: No Traveled to known affect area: No History of Present Illness HPI Patient is an extremely poor historian. Patient's son and a family friend via the phone provided all the history. Seizure and psych history. Questionable seizure this morning. Reports of a slip fall and head injury 3 days ago with a negative ER workup. Son reports that the patient has not been the same since. States that she is confused and disoriented. Denies any chest pain shortness of breath urinary or bowel symptoms. Denies any nausea vomiting diarrhea or fever. PFSH Past Medical History Asthma: Yes Anxiety: Yes Depression: Yes Cancer: No Cardiovascular Problems: No High Cholesterol: Yes Chemotherapy: No Diabetes: No Diminished Hearing: No Endocrine: No Glaucoma: No Genitourinary: No Headaches: Yes Hepatitis: No Hiatal Hernia: No Hypertension: No Immune Disorder: No Implanted Vascular Access Dvce: Yes Medical other: No Musculoskeletal: Yes (neck is fused ruptured disc in the back) Neurologic: Yes (seizure disorder frequent headaches) Psychiatric: Yes (anxiety and depression) Reproductive: Yes Respiratory: Yes (ASTHMA) Immunizations Current: Yes Radiation Therapy: No Seizures: Yes Thyroid Disease: No ?: Not : 3 Para: 2 Past Surgical History AICD: No Body Medical Devices: breast implants hardware both feet hardware in the neck Section: Yes Gynecologic Surgery: Yes (c -sectiioin left oophorectomy hysterectomy) Hysterectomy: Yes Joint Replacement: No Pacemaker: No Thoracic Surgery: Yes (benign left breast lumpectomy char breast implants) Other Surgery: Yes (lumpectomy melenoma) Social History Alcohol Use: No Tobacco Use: Yes (e cigs) Substance Use: No Allergies-Medications (Allergen,Severity, Reaction): Coded Allergies: No Known Allergies (Verified , 05/19/17) Reported Meds & Prescriptions Reported Meds & Active Scripts Active Tylenol-Codeine #3 (Acetaminophen-Codeine) 300-30 mg Tab 1 Tab PO Q6HR PRN Tylenol (Acetaminophen) 325 Mg Tab 650 Mg PO Q6H PRN Reported Ritalin IR (Methylphenidate HCl) 10 Mg Tab 10 Mg PO TIDAC Ibuprofen 200 Mg Cap 200 Mg PO DIRECTED Topiramate 50 Mg Tab 50 Mg PO BID Zolpidem (Zolpidem Tartrate) 10 Mg Tab 10 Mg PO HS PRN Vimpat (Lacosamide) 150 Mg Tab 150 Mg PO DAILY Alprazolam 1 Mg Tab 1 Mg PO Q6H PRN Ventolin Hfa 18 GM Inh (Albuterol Sulfate) 90 Mcg/Act Aer 1 Puff INH Q4H PRN Latuda (Lurasidone) 20 Mg Tab 40 Mg PO DAILY Trintellix (Vortioxetine) 5 Mg Tab 20 Mg PO DAILY Lamictal (Lamotrigine) 200 Mg Tab 250 Mg PO BID Review of Systems ROS Limitations: Altered Mental Status, Poor Historian General / Constitutional: No: Fever Eyes: No: Visual changes HENT: No: Headaches Cardiovascular: No: Chest Pain or Discomfort Respiratory: No: Shortness of Breath Gastrointestinal: No: Abdominal Pain Genitourinary: No: Dysuria Musculoskeletal: No: Pain Skin: No Rash Neurologic: No: Weakness Psychiatric: No: Depression Endocrine: No: Polydipsia Hematologic/Lymphatic: No: Easy Bruising Physical Exam Narrative GENERAL: Disoriented to place and time SKIN: Focused skin assessment warm/dry. HEAD: Atraumatic. Normocephalic. EYES: Pupils equal and round. No scleral icterus. No injection or drainage. ENT: No nasal bleeding or discharge. Mucous membranes pink and moist. NECK: Trachea midline. No JVD. CARDIOVASCULAR: Regular rate and rhythm. No murmur appreciated. RESPIRATORY: No accessory muscle use. Clear to auscultation. Breath sounds equal bilaterally. GASTROINTESTINAL: Abdomen soft, non-tender, nondistended. Hepatic and splenic margins not palpable. MUSCULOSKELETAL: No obvious deformities. No clubbing. No cyanosis. No edema. NEUROLOGICAL: Disoriented. No obvious cranial nerve deficits. Motor grossly within normal limits. Slurred speech. PSYCHIATRIC: Sluggish; insight and judgment is not normal. Data Data Last Documented VS Vital Signs Date Time Temp Pulse Resp B/P (MAP) Pulse Ox O2 Delivery O2 Flow Rate FiO2 05/19/17 14:17 59 16 93/57 (69) 97 05/19/17 12:16 97.2 Orders Orders Electrocardiogram (05/19/17 12:24) Complete Blood Count With Diff (05/19/17 12:24) Comprehensive Metabolic Panel (05/19/17 12:24) Creatine Kinase (Cpk) (05/19/17 12:24) Urinalysis - C+S If Indicated (05/19/17 12:24) Lactic Acid Sepsis Protocol (05/19/17 12:24) Blood Culture (05/19/17 12:24) Ct Brain W/O Iv Contrast(Rout) (05/19/17 12:24) Blood Glucose (05/19/17 12:24) Ecg Monitoring (05/19/17 12:24) Iv Access Insert/Monitor (05/19/17 12:24) Cath For Specimen (05/19/17 12:24) Oximetry (05/19/17 12:24) Sodium Chloride 0.9% Flush (Ns Flush) (05/19/17 12:30) Sodium Chlor 0.9% 1000 Ml Inj (Ns 1000 M (05/19/17 12:24) Drug Screen, Random Urine (05/19/17 12:24) Alcohol (Ethanol) (05/19/17 12:24) Ed Urine Pregnancytest Poc (05/19/17 12:24) Lamictal (Lamotrigine) (05/19/17 14:51) Place In Observation (05/19/17 ) Vital Signs (Adult) Q4H (05/19/17 15:25) Activity Bed Rest With Brp (05/19/17 ) Neuro Checks Q4H (05/19/17 15:25) Diet Regular Basic (05/19/17 Dinner) Sodium Chlor 0.9% 1000 Ml Inj (Ns 1000 M (05/19/17 15:25) Sodium Chloride 0.9% Flush (Ns Flush) (05/19/17 15:30) Sodium Chloride 0.9% Flush (Ns Flush) (05/19/17 21:00) Eeg Study (05/19/17 ) ^ Seizure Precautions (05/19/17 15:25) Labs Laboratory Tests Test 05/19/17 12:20 05/19/17 14:10 White Blood Count 6.0 TH/MM3 Red Blood Count 4.04 MIL/MM3 Hemoglobin 12.6 GM/DL Hematocrit 37.4 % Mean Corpuscular Volume 92.6 FL Mean Corpuscular Hemoglobin 31.2 PG Mean Corpuscular Hemoglobin Concent 33.7 % Red Cell Distribution Width 11.9 % Platelet Count 242 TH/MM3 Mean Platelet Volume 7.8 FL Neutrophils (%) (Auto) 48.6 % Lymphocytes (%) (Auto) 42.4 % Monocytes (%) (Auto) 5.3 % Eosinophils (%) (Auto) 3.0 % Basophils (%) (Auto) 0.7 % Neutrophils # (Auto) 3.0 TH/MM3 Lymphocytes # (Auto) 2.5 TH/MM3 Monocytes # (Auto) 0.3 TH/MM3 Eosinophils # (Auto) 0.2 TH/MM3 Basophils # (Auto) 0.0 TH/MM3 CBC Comment DIFF FINAL Differential Comment Blood Urea Nitrogen 12 MG/DL Creatinine 0.95 MG/DL Random Glucose 82 MG/DL Total Protein 6.7 GM/DL Albumin 3.8 GM/DL Calcium Level 8.2 MG/DL Alkaline Phosphatase 42 U/L Aspartate Amino Transf (AST/SGOT) 16 U/L Alanine Aminotransferase (ALT/SGPT) 23 U/L Total Bilirubin 0.3 MG/DL Sodium Level 142 MEQ/L Potassium Level 3.9 MEQ/L Chloride Level 111 MEQ/L Carbon Dioxide Level 23.0 MEQ/L Anion Gap 8 MEQ/L Estimat Glomerular Filtration Rate 67 ML/MIN Lactic Acid Level 0.5 mmol/L Total Creatine Kinase 63 U/L Ethyl Alcohol Level LESS THAN 3 MG/DL Urine Collection Type CATH Urine Color STRAW Urine Turbidity CLEAR Urine pH 6.0 Urine Specific [place] 1.011 Urine Protein NEG mg/dL Urine Glucose (UA) NEG mg/dL Urine Ketones NEG mg/dL Urine Occult Blood NEG Urine Nitrite NEG Urine Bilirubin NEG Urine Leukocyte Esterase NEG Urine Squamous Epithelial Cells 0-5 /hpf Urine Amorphous Sediment FEW Microscopic Urinalysis Comment CATH-CULT NOT IND Urine Collection Time 1410 Urine Opiates Screen NEG Urine Barbiturates Screen POS Urine Amphetamines Screen NEG Urine Benzodiazepines Screen POS Urine Cocaine Screen NEG Urine Cannabinoids Screen NEG [facility] Medical Decision Making Medical Screen Exam Complete: Yes Emergency Medical Condition: Yes Differential Diagnosis Seizure, postictal, drug abuse, alcohol abuse, cranial bleed Narrative Course assessment and plan discussed with patient and son at bedside. EKG reveals sinus rhythm rate of 68. Long discussion with patient's mother who reports this is her baseline after seizures. Patient was admitted for observation and neurological consult however patient refused and is leaving AMA Diagnosis Primary Impression: Postictal state Additional Instructions: Encouraged rest and fluids, follow-up with PCP, follow-up with neurology, return to emergency room with any onset of new symptoms. Med/Other Pt SpecificInfo: No Meds Exist/No RX given Disposition: 07 AGAINST MEDICAL ADVICE Condition: Jose G Farley MD May 19, 2017 12:29
[2017-05-19] MEDS ORDERED: SODIUM CHLORIDE 0.9% FLUSH 5 ML FLUSH IV FLUSH PRN (12:30)
[2017-05-19 12:57] LABS: BASOPHIL % 0.7 % (0.0-2.0); EOSINOPHIL # 0.2 TH/MM3 (0-0.4); HEMATOCRIT 37.4 % (35.0-46.0); HEMO FLAGS DIFF FINAL; LYMPH % 42.4 % (9.0-44.0); LYMPHOCYTE # 2.5 TH/MM3 (1.0-4.8); MEAN CELL VOLUME 92.6 FL (80.0-100.0); MEAN CORPUSCULAR HEMOGLOBIN 31.2 PG (27.0-34.0); MEAN CORPUSCULAR HGB CONC 33.7 % (32.0-36.0); MONO % 5.3 % (0.0-8.0); NEUT % 48.6 % (16.0-70.0); PLATELET COUNT 242 TH/MM3 (150-450); RED BLOOD COUNT 4.04 MIL/MM3 (4.00-5.30); RED CELL DISTRIBUTION WIDTH 11.9 % (11.6-17.2)
[2017-05-19 13:07] LABS: CHLORIDE 111 MEQ/L (98-107); POTASSIUM 3.9 MEQ/L (3.5-5.1); SODIUM (NA) 142 MEQ/L (136-145)
[2017-05-19 13:11] LABS: ANION GAP 8 MEQ/L (5-15); BLOOD UREA NITROGEN 12 MG/DL (7-18)
[2017-05-19 13:14] LABS: ALT (GPT) 23 U/L (10-53); AST (GOT) 16 U/L (15-37); GLOMERULAR FILTRATION RATE 67 ML/MIN (>89)
[2017-05-19 13:15] LABS: TOTAL BILIRUBIN ADULT 0.3 MG/DL (0.2-1.0)
[2017-05-19 13:16] LABS: ALKALINE PHOSPHATASE 42 U/L (45-117)
[2017-05-19 13:20] LABS: ALCOHOL LESS THAN 3 MG/DL (0-5); CREATINE KINASE 63 U/L (26-192)
[2017-05-19 14:17] VITALS: BP 93/57; PULSE 59; RESP 16; O2SAT 97
[2017-05-19 14:29] LABS: BLOOD, URINE NEG (NEG); GLUCOSE,URINE NEG (NEG); KETONE, URINE NEG (NEG); NITRITE,URINE NEG (NEG)
[2017-05-19 14:32] LABS: METHOD OF COLLECTION CATH; URINE COLOR STRAW (YELLW/STRAW)
[2017-05-19 14:33] LABS: CULTURE IF INDICATED CATH CULTURE NOT IND; SQUAMOUS EPITHELIAL CELL URINE 0-5 /hpf (0-5)
[2017-05-19 14:34] LABS: COMMENT (UR) CATH-CULT NOT IND
--- NOTE | 2017-05-19 15:00 | RADRPT ---
EXAM DATE/TIME: 05/19/2017 14:39 [facility] COMPARISON: CT BRAIN W/O CONTRAST, May 16, 2017, 13:13. INDICATIONS : Possible seizure today, altered mental status. RADIATION DOSE: 61.48 CTDIvol (mGy) MEDICAL HISTORY : Seizures. SURGICAL HISTORY : None. ENCOUNTER: Initial ACUITY: 1 day PAIN SCALE: 0/10 LOCATION: cranial TECHNIQUE: Multiple contiguous axial images were obtained of the head. Using automated exposure control and adj ustment of the mA and/or kV according to patient size, radiation dose was kept as low as reasonably a chievable to obtain optimal diagnostic quality images. DICOM format image data is available electro nically for review and comparison. FINDINGS: CEREBRUM: The ventricles are normal for age. No evidence of midline shift, mass lesion, hemorrhage or acute in farction. No extra-axial fluid collections are seen. POSTERIOR FOSSA: The cerebellum and brainstem are intact. The 4th ventricle is midline. The cerebellopontine angle i s unremarkable. EXTRACRANIAL: The visualized portion of the orbits is intact. SKULL: The calvaria is intact. No evidence of skull fracture. CONCLUSION: Unremarkable noncontrast CT unchanged from 3 days ago. Uli Verma MD on May 19, 2017 at 14:57 Board Certified Radiologist. This report was verified electronically.
[2017-05-19] MEDS ORDERED: SODIUM CHLORIDE 0.9% FLUSH 10 ML FLUSH IV FLUSH PRN (15:30)
--- NOTE | 2017-05-19 15:37 | HHI.PR ---
Addendum To [facility] Progress Not Reason for addendum: Additonal documentation (patient and mom have decided not to stayin the hospital, dr albert aware) Citlali Almendarez MD May 19, 2017 15:37
[2017-05-19] MEDS ORDERED: SODIUM CHLORIDE 0.9% FLUSH 10 ML FLUSH IV FLUSH SCH (21:00)
--- NOTE | 2017-05-20 12:39 | EKG ---
Date Performed: 05/19/2017 Time Performed: 12:44:08 PTAGE: 36 years EKG: Sinus rhythm POSSIBLE RIGHT VENTRICULAR CONDUCTION DELAY BORDERLINE ECG PREVIOUS TRACING : 04/19/2014 18.48 Since previous tracing, right ventricular conduction delay is new. DOCTOR: Tom Vidal Interpretating Date/Time 05/20/2017 12:39:03
== END 2017-05-19 15:50 | disposition left against medical advice (07) ==
LOC: PHED 12:08
DX: G40.909 Epilepsy, unspecified, not intractable, without status epilepticus (principal); F32.9 Major depressive disorder, single episode, unspecified; Z79.899 Other long term (current) drug therapy
CPT/HCPCS: 70450; 80053; 80307; 81001; 82550; 83605; 84703; 85025; 87040; 93005; 96360; 96361; 99285; J7030